=== PATIENT | male | born 1965 | race Native Hawaiian/Other Pacific Islander ===

== ENCOUNTER 2017-09-03 10:33 | Day surgery (SDC) | payer MEDICAID ==
[2017-08-25 10:06] VITALS: BMI 22.8
[2017-09-03 10:57] VITALS: RESP 16
[2017-09-03] MEDS ORDERED: Propofol 10 mg/ml Inj (20 ML) ONE (12:38)
[2017-09-03 13:26] VITALS: PULSE 75
[2017-09-03] MEDS ORDERED: Sodium Chloride 0.9% 1,000 ML IV SCH (13:30)
[2017-09-03 13:59] VITALS: BP 137/80; TEMP 98; O2SAT 100
== END 2017-09-03 14:09 | disposition home or self-care (01) ==
LOC: ENDO 10:33
PROVIDERS: ATTEND Internal Medicine
DX: Z12.11 Encounter for screening for malignant neoplasm of colon (principal); K63.5 Polyp of colon; K57.30 Diverticulosis of large intestine without perforation or abscess without bleeding; K64.8 Other hemorrhoids
CPT/HCPCS: 45380; 88305; J2001; J2704; J7040